=== PATIENT | male | born 1965 | race Two or more races ===

== ENCOUNTER 2019-08-27 17:04 | Inpatient (IN) | payer OTHER ==
[~2019-08-27] VITALS: Ht 170.2 cm; Wt 54.4 kg
[2019-08-27] MEDS ORDERED: ONDANSETRON HCL/PF - ER 4 MG/2 ML VIAL IV ONE (17:30)
[2019-08-27] MEDS ORDERED: IV NS 0.9% 1,000 ML BAG IV ONE (17:30)
[2019-08-27] MEDS ORDERED: MORPHINE SULFATE INJ 2 MG/ML DISP.SYRIN IV ONE ×2 (17:30→22:00)
--- NOTE | 2019-08-27 17:30 | NUR ---
BIB RA 878 from Home "Abdominal Pain/Nausea was seen in [facility] UTI leukocystosis given meds but NOT better. on room air, breathing evenly and unlabored. connected to the monitor and pulse ox. kept comfortable, will continue to monitor accordingly.
[2019-08-27] MEDS ORDERED: ONDANSETRON HCL/PF 4 MG/2 ML VIAL ONE (17:38)
[2019-08-27] MEDS ORDERED: MORPHINE SULFATE INJ 2 MG/ML DISP.SYRIN ONE ×2 (17:39→21:46)
[2019-08-27 17:41] LABS: BASOPHILS # (AUTO) 0.1 /CMM (0.0-0.2); BASOPHILS % (AUTO) 0.7 % (0.0-2.0); EOSINOPHILS % (AUTO) 2.3 % (0.0-6.0); HEMATOCRIT 43 % (39-51); HEMOGLOBIN 13.6 g/dL (13.5-17.5); LYMPHOCYTES # (AUTO) 2.3 /CMM (0.8-4.8); LYMPHOCYTES % (AUTO) 25.2 % (20.0-44.0); MEAN CORPUSCULAR HGB CONC 32 g/dl (31.0-36.0); MEAN CORPUSCULAR VOLUME 71 fL (80-96); MONOCYTES # (AUTO) 1.2 /CMM (0.1-1.30); MONOCYTES % (AUTO) 12.7 % (2.0-12.0); NEUTROPHILS # (AUTO) 5.4 /CMM (1.8-8.9); NEUTROPHILS % (AUTO) 59.1 % (43.0-81.0); PLATELET COUNT (AUTO) 321 /CMM (150-450); RED BLOOD CELL COUNT(AUTO) 6.03 MIL/uL (4.5-6.0); WHITE BLOOD COUNT (AUTO) 9.1 K/uL (4.3-11.0)
[2019-08-27 17:56] LABS: ALANINE AMINOTRANSFERASE 18 U/L (12-78); ALBUMIN 3.7 g/dL (3.4-5.0); ALKALINE PHOSPHATASE 70 U/L (46-116); ASPARTATE AMINOTRANSFERASE 21 U/L (15-37); BILIRUBIN,DIRECT 0.1 mg/dL (0.0-0.2); BILIRUBIN,TOTAL 0.6 mg/dL (0.2-1.0); CARBON DIOXIDE 29 mmol/L (21-32); CHLORIDE 96 mmol/L (98-107); CREATININE 1.6 mg/dL (0.6-1.3); GLUCOSE 132 mg/dL (74-106); POTASSIUM 3.8 mmol/L (3.5-5.1); SODIUM SERUM 135 mmol/L (136-145); TOTAL PROTEIN, SERUM 7.7 g/dL (6.4-8.2); UREA NITROGEN, BLOOD 27 mg/dL (7-18)
[2019-08-27 17:58] LABS: CALCIUM, SERUM 13.8 mg/dL (8.5-10.1)
--- NOTE | 2019-08-27 18:00 | NUR ---
wheeled patient to ct
--- NOTE | 2019-08-27 18:00 | NUR ---
med recon nurse: notes pt unable to remember his exact meds when asked, but he goes [facility] [employer] as stated. place a call to [facility] ([phone]), spoke to robbie (pharmacist) and provided his maintenance medications and verified meds over the phone.
[2019-08-27] MEDS ORDERED: METF500T PO (18:08)
[2019-08-27] MEDS ORDERED: LOSA100T31 PO (18:08)
[2019-08-27] MEDS ORDERED: GLIP5TAB26 PO (18:08)
[2019-08-27] MEDS ORDERED: ATOR10TA PO (18:08)
[2019-08-27] MEDS ORDERED: AMLO10TA7 PO (18:08)
--- NOTE | 2019-08-27 18:08 | NUR ---
patient came back from ct
[2019-08-27 18:12] LABS: BILIRUBIN,URINE Negative (NEGATIVE); BLOOD, URINE Negative Ery/uL (NEGATIVE); COLOR,URINE Yellow (YELLOW); KETONES,URINE 80 (NEGATIVE); LEUKOCYTE ESTERASE ,URINE Trace (NEGATIVE); NITRITE, URINE Positive (NEGATIVE); PH,URINE 6.5 (5.0-8.0); PROTEIN,URINE Negative (NEGATIVE); UGLUCOSE Negative (NEGATIVE); UROBILINOGEN,URINE 0.2 EU/dL (0.2)
--- NOTE | 2019-08-27 18:12 | NUR ---
wheeled patient via gurney to ct
[2019-08-27 18:13] LABS: APPEARANCE,URINE HAZY (CLEAR)
--- NOTE | 2019-08-27 18:13 | NUR ---
collected urine and sent to lab
[2019-08-27] MEDS ORDERED: MEROPENEM 1,000 MG in IV NS 0.9% 100 ML IV ONE (19:00)
[2019-08-27 19:04] LABS: BACTERIA,URINE Moderate /HPF (None Seen); RBC,URINE 0-2 /HPF (0-2); SQUAMOUS EPITHELIAL CELL,UR Many /HPF (None Seen)
--- NOTE | 2019-08-27 19:12 | NUR ---
report given to Pauline LEMON for [place]
--- NOTE | 2019-08-27 19:38 | NUR ---
GAVE MOVESHEET TO ADMITTING FOR INSURANCE AUTH
--- NOTE | 2019-08-27 21:05 | NUR ---
DR FALCON SPEAKING WITH DR HARDIN FROM [facility]
--- NOTE | 2019-08-27 21:13 | NUR ---
DR FALCON SPEAKING WITH DR WATT
--- NOTE | 2019-08-27 21:20 | NUR ---
RECEIVED AUTH TO ADMIT
--- NOTE | 2019-08-27 21:24 | NUR ---
PAGED JACINTO STINSON FOR ADMISSION
--- NOTE | 2019-08-27 21:30 | NUR ---
DR. FALCON AT THE BED SIDE. SPOKE TO THE PT REGARDING NG INSERTION. PT REFUSED NG AT THIS TIME . RISK VS. BENEFITS WERE EXPLAINED TO THE PT BY .
--- NOTE | 2019-08-27 22:24 | NUR ---
REPORT GIVEN TO NEEL
--- NOTE | 2019-08-27 22:45 | NUR ---
RN OPENING NOTE PATIENT ARRIVED TO UNIT AT THIS TIME FROM ER VIA [facility]. PATIENT TRANSFERRED SELF FROM [facility] TO HOSPITAL BED WITH MINIMAL ASSISTANCE. A&O X4. VERBALLY RESPONSIVE. SPEECH IS CLEAR AND COMPREHENSIVE. BREATHING IS EVEN AND NON LABORED. 99% ROOM AIR. AFEBRILE. IN NO APPARENT DISTRESS NOTED AT THIS TIME. PATIENT IS MOTIVATED TO SELF CARE. NOTED PINK/RED SCAB OF LEFT KNEE AND MULTIPLE ROUND SCABS ON RIGHT ARM. PATIENT HAS SUPRAPUBIC CATHETER AND DRAINING WELL. 100 CC NOTED URINE IN URINE COLLECTION BAG. HEALED SURGICAL INCISION NOTED BELOW SITE OF SUPRAPUBIC CATH. PER PATIENT, HE HAS NOT HAD A BOWEL MOVEMENT IN 10 DAYS. HE VERBALIZED THAT HE VOMITS AFTER ATTEMPTING TO EAT OR DRINK. PER MD, PATIENT IS NPO. BED IS LOWERED AND LOCKED FOR SAFETY. CALL LIGHT IS WITHIN EASY REACH. WILL CONTINUE TO MONITOR.
[2019-08-27 22:50] VITALS: BP 155/99
--- NOTE | 2019-08-27 22:52 | NUR ---
PT WAS TRANSFERRED TO 115 UNDER ACLS
[2019-08-27] MEDS ORDERED: Z GUARD REMEDY 2 OZ OINT TP PRN (23:00)
[2019-08-27] MEDS ORDERED: DEXTROSE 50%-WATER 50 ML DISP.SYRIN IV PRN (23:00)
[2019-08-27] MEDS: IV D5/ 0.9% NACL 1,000 ML IV PRN (23:43)
[2019-08-27] MEDS: BLOOD SUGAR DIAGNOSTIC 1 EACH STRIP IN SCH (23:52)
[2019-08-27] MEDS ORDERED: METRONIDAZOLE 500MG/ NS 100ML 100 ML IV ONE (23:59)
[2019-08-28] MEDS: METRONIDAZOLE 500MG/ NS 100ML 500 MG in PREMIX 1 EA IV SCH ×4 (00:02→20:51)
[2019-08-28] MEDS: MORPHINE SULFATE INJ 2 MG/ML DISP.SYRIN IV PRN ×5 (01:54→19:52)
[2019-08-28] MEDS: BLOOD SUGAR DIAGNOSTIC 1 EACH STRIP IN SCH ×3 (05:26→18:13)
[2019-08-28] MEDS: INSULIN REGULAR, HUMAN 100 UNIT/ML 3 ML VIAL SQ PRN ×2 (05:29→18:16)
[2019-08-28] MEDS ORDERED: METRONIDAZOLE 500MG/ NS 100ML 100 ML IV ONE (06:19)
[2019-08-28 06:23] LABS: BASOPHILS # (AUTO) 0.1 /CMM (0.0-0.2); BASOPHILS % (AUTO) 0.8 % (0.0-2.0); EOSINOPHILS % (AUTO) 3.2 % (0.0-6.0); HEMATOCRIT 40 % (39-51); HEMOGLOBIN 12.5 g/dL (13.5-17.5); LYMPHOCYTES # (AUTO) 1.5 /CMM (0.8-4.8); LYMPHOCYTES % (AUTO) 21.4 % (20.0-44.0); MEAN CORPUSCULAR HGB CONC 32 g/dl (31.0-36.0); MEAN CORPUSCULAR VOLUME 70 fL (80-96); MONOCYTES # (AUTO) 0.8 /CMM (0.1-1.30); MONOCYTES % (AUTO) 11.2 % (2.0-12.0); NEUTROPHILS # (AUTO) 4.4 /CMM (1.8-8.9); NEUTROPHILS % (AUTO) 63.4 % (43.0-81.0); PLATELET COUNT (AUTO) 332 /CMM (150-450); RED BLOOD CELL COUNT(AUTO) 5.67 MIL/uL (4.5-6.0); WHITE BLOOD COUNT (AUTO) 6.9 K/uL (4.3-11.0)
[2019-08-28 06:34] LABS: ALBUMIN 3.1 g/dL (3.4-5.0); BILIRUBIN,TOTAL 0.5 mg/dL (0.2-1.0); CALCIUM, SERUM 11.4 mg/dL (8.5-10.1); CREATININE 1.5 mg/dL (0.6-1.3); MAGNESIUM 1.8 mg/dL (1.8-2.4); PHOSPHORUS 2.4 mg/dL (2.5-4.9); POTASSIUM 3.6 mmol/L (3.5-5.1); TOTAL PROTEIN, SERUM 6.6 g/dL (6.4-8.2)
[2019-08-28 06:39] LABS: THYROID STIMULATING HORMONE 1.399 uIU/mL (0.358-3.74)
--- NOTE | 2019-08-28 07:49 | NUR ---
RN CLOSING NOTE PATIENT IS IN BED RESTING. A&O X4. BREATHING EVEN AND NON LABORED. NO SOB NOTED. ABLE TO MAKE NEEDS KNOWN. PRN PAIN MEDS GIVEN ORDERED AND TOLERATED WELL. PATIENT KEPT NPO. IN NO APPARENT DISTRESS NOTED AT THIS TIME. ENDORSED TO AM SHIFT RN FOR CONTINUATION OF CARE.
[2019-08-28 08:00] VITALS: BP_SYST 113; BP_SYST 140; BP_DIAS 57; BP_DIAS 79
[2019-08-28] MEDS ORDERED: MEROPENEM 1 G in IV NS 0.9% 100 ML IV ONE (09:00)
[2019-08-28] MEDS: PANTOPRAZOLE 40 MG VIAL IV SCH (09:23)
--- NOTE | 2019-08-28 09:31 | NUR ---
RN OPENING NOTES RECEIVED PATIENT IN BED, A/O X 4. VERBALLY RESPONSIVE AND ABLE TO MAKE NEEDS KNOWN. COMPLAINT OF PAIN ON HIS LOWER BACK, INFORMED PATIENT THAT I WILL CHECK HIS FILE IF THERE'S ANY ORDER OF PAIN MEDS. ON ROOM AIR, SATURATING WELL. IV ACCESS ON L HAND #20, INTACT, PATENT AND FLUSHED WELL. NO SIGNS OF INFILTRATION NOTED. WITH D5NS @75ML RUNNING. HOLLAND CATHETER DRAINING OF YELLOW COLOR URINE VIA GRAVITY WITH 100ML ON THE BAG. SAFETY MEASURES IN PLACE, CALL LIGHT WITHIN REACH. WILL GIVE PRN PAIN MEDS SOON AND CONTINUE TO MONITOR.
[2019-08-28] MEDS ORDERED: K PHOS NEUTRAL 250 MG TABLET PO ONE (12:30)
--- NOTE | 2019-08-28 12:35 | NUR ---
RN NOTES CALLED LAB AND SPOKE WITH CARLA THAT URINE SPECIMEN IS READY FOR CLIMATOLOGIST.
[2019-08-28] MEDS ORDERED: POTASSIUM PHOSPHATE MM 7.5 MMOL in IV D5W 100 ML IV SCH (14:00)
[2019-08-28 14:33] LABS: APPEARANCE,URINE CLEAR (CLEAR); BILIRUBIN,URINE NEGATIVE (NEGATIVE); BLOOD, URINE NEGATIVE Ery/uL (NEGATIVE); COLOR,URINE YELLOW (YELLOW); KETONES,URINE TRACE (NEGATIVE); NITRITE, URINE POSITIVE (NEGATIVE); PROTEIN,URINE NEGATIVE (NEGATIVE); UGLUCOSE NEGATIVE (NEGATIVE); UROBILINOGEN,URINE 0.2 EU/dL (0.2)
[2019-08-28 14:45] LABS: BACTERIA,URINE 1+ /HPF (None Seen); LEUKOCYTE ESTERASE ,URINE TRACE (NEGATIVE); RBC,URINE 0-2 /HPF (0-2)
[2019-08-28 14:46] LABS: SQUAMOUS EPITHELIAL CELL,UR Few /HPF (None Seen)
[2019-08-28 14:57] LABS: CREATININE, URINE 80.6 MG/DL (30.0-125.0); URINE TOTAL PROTEIN 11.6 mg/dL (0-11.9)
--- NOTE | 2019-08-28 15:00 | NUR ---
RN NOTES CONSUMER SERVICES ADVISOR BY RADIOLOGY FOR SMALL BOWEL FOLLOW THROUGH, VITALS SIGNS WNL, IN STABLE CONDITION.
[2019-08-28] MEDS ORDERED: DIATR MEGLU/DIATRIZOATE SODIUM 120 ML BOTTLE (GASTROGRAPHIN) ONE (15:13)
--- NOTE | 2019-08-28 15:30 | NUR ---
RN NOTES WASN'T ABLE TO REASSESS ON MORPHINE BECAUSE PATIENT IS CURRENTLY AT RADIOLOGY
[2019-08-28 16:00] VITALS: BP 138/83
[2019-08-28 16:03] LABS: EOSINOPHIL,URINE None Seen
[2019-08-28] MEDS: MEROPENEM 1 G in IV NS 0.9% 100 ML IV SCH (17:19)
--- NOTE | 2019-08-28 17:25 | NUR ---
RN NOTES PATIENT CAME BACK AFTER SMALL BOWEL FOLLOW THROUGH
--- NOTE | 2019-08-28 19:45 | NUR ---
RN NOTES PATIENT IN BED, ASLEEP. IN NO APPARENT DISTRESS NOTED. NO CHANGE OF CONDITION DURING AM SHIFT. ENDORSED TO PM RN FOR KAREN
--- NOTE | 2019-08-28 19:52 | NUR ---
RN NOTES PRN MORPHINE 2MGMG IV GIVEN ORDERED, PATIENT IS C/O MID ABD PAIN 8/10. WILL MONITOR FOR EFFECTIVENESS.
--- NOTE | 2019-08-28 19:52 | NUR ---
RN NOTES RECEIVED PATIENT ALERT AWAKE ORIENTED X4. BREATHING NORMAL NO SOB NOTED. LT HAND IV #20 INTACT FLESHED WELL. PATIENT IS AMBULATORY. SUPRAPUBIC CATH DARNING WELL. PATIENT IS C/O MID UPPER ABD PAIN 9/10. MORPHINE 2MG IV GIVEN ORDERED. WILL CONT TO MONITOR AND REASSESS THE PATIENT FOR EFFECTIVENESS. SAFETY MEASURES IN PLACE. CALL LIGHT WITHIN REACH. BED IN LOW AND LOCKED POSITION. WILL CONT WITH PLAN OF CARE.
--- NOTE | 2019-08-28 20:22 | NUR ---
RN NOTES PRN MORPHINE WAS EFFECTIVE PATIENT REPORTED PAIN LOWER TO 4/10, SAFETY MEASURES IN PLACE. BED IN LOW AND LOCKED POSITION. CALL LIGHT WITHIN REACH.
[2019-08-28] MEDS: ONDANSETRON HCL/PF 4 MG/2 ML VIAL IVP PRN (20:54)
--- NOTE | 2019-08-28 20:54 | NUR ---
RN NOTES PRN ZOFRAN GIVEN ORDERED PATIENT HAD X1 EPISODE OF VOMITING AND C/O OF NAUSEA. WILL CONT TO MONITOR AND REASSESS THE PATIENT FOR EFFECTIVENESS.
--- NOTE | 2019-08-28 21:24 | NUR ---
RN NOTES ZOFRAN WAS EFFECTIVE. NAUSEA IMPROVED AND NO EPISODE OF VOMITING REPORTED BY THE PATIENT.
[2019-08-28] MEDS: IV D5/ 0.9% NACL 1,000 ML IV PRN (22:34)
[2019-08-28] MEDS: ACETAMINOPHEN 325 MG TABLET PO PRN (23:15)
--- NOTE | 2019-08-28 23:15 | NUR ---
RN NOTES PATIENT'S C/O OF MID ABD PAIN 3/10 PRN TYLENOL ADMINISTERED ORDERED. WILL REASSESS FOR EFFECTIVENESS.
[2019-08-29] VITALS: BP 141/87
[2019-08-29] MEDS: BLOOD SUGAR DIAGNOSTIC 1 EACH STRIP IN SCH ×3 (00:10→12:24)
[2019-08-29] MEDS: MEROPENEM 1 G in IV NS 0.9% 100 ML IV SCH ×2 (00:10→09:04)
[2019-08-29] MEDS: MORPHINE SULFATE INJ 2 MG/ML DISP.SYRIN IV PRN ×3 (00:11→09:05)
--- NOTE | 2019-08-29 00:11 | NUR ---
RN NOTES PRN MORPHINE 2MG IV GIVEN ORDERED, PATIENT IS C/O MID ABD PAIN 9/10. WILL MONITOR FOR EFFECTIVENESS.
--- NOTE | 2019-08-29 00:15 | NUR ---
RN NOTES TYLENOL WAS EFFECTIVE PAIN LOWER TO 2/10. SAFETY MEASURES IN PLACE. CALL LIGHT WITHIN REACH.
[2019-08-29] MEDS: INSULIN REGULAR, HUMAN 100 UNIT/ML 3 ML VIAL SQ PRN ×2 (00:34→12:23)
--- NOTE | 2019-08-29 00:41 | NUR ---
RN NOTES PRN MORPHINE WAS EFFECTIVE PATIENT REPORTED PAIN LOWER TO 5/10, PATIENT RESTING IN BED. SAFETY MEASURES IN PLACE. BED IN LOW AND LOCKED POSITION. CALL LIGHT WITHIN REACH.
[2019-08-29] MEDS: ONDANSETRON HCL/PF 4 MG/2 ML VIAL IVP PRN (03:20)
[2019-08-29] MEDS: METRONIDAZOLE 500MG/ NS 100ML 500 MG in PREMIX 1 EA IV SCH ×2 (04:11→12:24)
--- NOTE | 2019-08-29 04:27 | NUR ---
RN NOTES PRN MORPHINE 2MG IV GIVEN ORDERED, PATIENT IS C/O MID ABD PAIN 9/10. WILL MONITOR FOR EFFECTIVENESS.
[2019-08-29 07:02] LABS: BASOPHILS % (AUTO) 0.1 % (0.0-2.0); EOSINOPHILS % (AUTO) 0.4 % (0.0-6.0); HEMATOCRIT 37 % (39-51); HEMOGLOBIN 11.7 g/dL (13.5-17.5); LYMPHOCYTES # (AUTO) 0.8 /CMM (0.8-4.8); LYMPHOCYTES % (AUTO) 5.5 % (20.0-44.0); MEAN CORPUSCULAR HGB CONC 31 g/dl (31.0-36.0); MEAN CORPUSCULAR VOLUME 70 fL (80-96); MONOCYTES # (AUTO) 0.8 /CMM (0.1-1.30); MONOCYTES % (AUTO) 4.9 % (2.0-12.0); NEUTROPHILS # (AUTO) 13.7 /CMM (1.8-8.9); NEUTROPHILS % (AUTO) 89.1 % (43.0-81.0); PLATELET COUNT (AUTO) 315 /CMM (150-450); RED BLOOD CELL COUNT(AUTO) 5.37 MIL/uL (4.5-6.0); WHITE BLOOD COUNT (AUTO) 15.4 K/uL (4.3-11.0)
--- NOTE | 2019-08-29 07:12 | NUR ---
RN NOTES PATIENT IN BED AOX4, SKIN WARM AND DRY TO TOUCH. PATIENT RECEIVED PRN PAIN/ ROUTINE MEDICATION FOR MID ABD PAIN TOLERATED WELL. BREATHING NORMAL NO SOB NOTED, RESPIRATION EVEN UNLABORED. VS WITHIN NORMAL. PATIENT TURNED AND REPOSITION Q2H. ALL SAFETY MEASURES IN PLACE, CALL LIGHT WITHIN REACH, BED IN LOW/LOCKED POSITION, ENDORSED THE PATIENT TO AM NURSE.
[2019-08-29 07:24] LABS: BILIRUBIN,TOTAL 0.4 mg/dL (0.2-1.0); CALCIUM, SERUM 10.5 mg/dL (8.5-10.1); CREATININE 1.5 mg/dL (0.6-1.3); MAGNESIUM 1.9 mg/dL (1.8-2.4); PHOSPHORUS 2.3 mg/dL (2.5-4.9); POTASSIUM 3.4 mmol/L (3.5-5.1); TOTAL PROTEIN, SERUM 6.4 g/dL (6.4-8.2)
--- NOTE | 2019-08-29 07:40 | NUR ---
RN NOTES RECEIVED PHONE CALL FROM JACINTO HORNE NEW ORDER FOR STAT KUB FOR INDICATION FOR FOLLOW UP SMALL BOWEL OBSTRUCTION. ORDER NOTED AND CARRIED OUT. PATIENT AWARE.
[2019-08-29 08:00] VITALS: BP 125/77
[2019-08-29] MEDS: PANTOPRAZOLE 40 MG VIAL IV SCH (09:04)
[2019-08-29] MEDS ORDERED: HYDROCODONE/APAP 5/325MG 1 EACH TABLET PO PRN (11:30)
[2019-08-29] MEDS ORDERED: K PHOS NEUTRAL 250 MG TABLET PO ONE (12:30)
[2019-08-29] MEDS ORDERED: POTASSIUM CHLORIDE 20 MEQ TAB.PRT.SR PO ONE (12:30)
--- NOTE | 2019-08-29 14:15 | NUR ---
SBAR report given to ION Thomas for continuity of pt care.
[2019-08-29] MEDS ORDERED: SENN-261 PO (14:35)
[2019-08-29] MEDS ORDERED: DOCU-141 PO (14:35)
[2019-08-29] MEDS: ACETAMINOPHEN 325 MG TABLET PO PRN (15:11)
[2019-08-29 16:00] VITALS: BP 125/77
--- NOTE | 2019-08-29 16:00 | NUR ---
Given discharge instruction include car pick up driver medications, side effect, follow up PCP, and patient verbally understanding. Denied pain or discomfort, in stable condition.
[2019-08-30 08:06] LABS: *SPE ALBUMIN 2.9 g/dL (2.9-4.4); *SPE ALPHA-1-GLOBULIN 0.3 g/dL (0.0-0.4); *SPE ALPHA-2-GLOBULIN 1.1 g/dL (0.4-1.0); *SPE BETA GLOBULIN 0.8 g/dL (0.7-1.3); *SPE GLOBULIN, TOTAL 2.9 g/dL (2.2-3.9); *SPE M-SPIKE Not Observed g/dL (Not Observed); *SPEGAMMA GLOBULIN 0.8 g/dL (0.4-1.8)
== END 2019-08-29 16:45 | disposition home or self-care (01) | DRG 388 ==
LOC: ER 17:06 → TELE1 22:08 → MEDSG1 08-28 10:32
PROVIDERS: ADMIT Hospitalist
DX: K56.600 Partial intestinal obstruction, unspecified as to cause (principal); N17.0 Acute kidney failure with tubular necrosis; N39.0 Urinary tract infection, site not specified; I31.3 Pericardial effusion (noninflammatory); E83.52 Hypercalcemia; E11.9 Type 2 diabetes mellitus without complications; I10 Essential (primary) hypertension; Z79.84 Long term (current) use of oral hypoglycemic drugs; Z87.440 Personal history of urinary (tract) infections; Z87.442 Personal history of urinary calculi; K56.7 Ileus, unspecified; K76.89 Other specified diseases of liver; E86.1 Hypovolemia; N21.0 Calculus in bladder; K80.20 Calculus of gallbladder without cholecystitis without obstruction; K44.9 Diaphragmatic hernia without obstruction or gangrene
CPT/HCPCS: 36415; 71045-TC; 74018; 74250-TC; 80048-TC; 80053-TC; 80061-TC; 80076-TC; 80305; 81000-TC; 82550-TC; 82570-TC; 82962-TC; 83605-TC; 83735-TC; 83970; 84100-TC; 84155; 84155-TC; 84165; 84300-TC; 84443-TC; 84484-TC; 85025-TC; 85730-TC; 87040-TC; 87081-TC; 87086-TC; 87186-TC; A4216; A6403; C9113; G0378; G0480; J1815; J2185; J2270; J2405; J3490; J7030; J7042; J7060; Q9963

== ENCOUNTER 2022-01-11 19:19 | Emergency (ER) | payer OTHER ==
[~2022-01-11] VITALS: Ht 170.2 cm; Wt 64.9 kg
[~2022-01-11 19:19] MED LIST: AMLO-213 PO; ATOR10TA PO; DOCU-141 PO; GLIP5TAB26 PO; LOSA100T31 PO; METF500T PO; SENN-261 PO
--- NOTE | 2022-01-11 19:33 | NUR ---
[id number] FROM HOME C/O N/V X 2 DAYS GIVEN ZOFRAN PO PHOTORESIST CONTACT PRINTER . PT A/OX4. TOLERATING R/A WELL WITH NO SOB, RESP EVEN AND NON LABORED. CONNECTED PT TO POX AND MONITOR. SAFETY MEASURES IN PLACE
--- NOTE | 2022-01-11 19:50 | NUR ---
DR. MANISHA RODAS AT PT'S BEDSIDE
[2022-01-11] MEDS ORDERED: MORPHINE SULFATE INJ 2 MG/ML DISP.SYRIN IV ONE (20:00)
[2022-01-11] MEDS ORDERED: IV NS 0.9% 500 ML BAG IV ONE (20:00)
[2022-01-11] MEDS ORDERED: ONDANSETRON HCL/PF 4 MG/2 ML VIAL IVP ONE (20:00)
[2022-01-11] MEDS ORDERED: PANTOPRAZOLE 40 MG VIAL IV ONE (20:00)
[2022-01-11] MEDS ORDERED: ONDANSETRON HCL/PF 4 MG/2 ML VIAL ONE (20:01)
[2022-01-11] MEDS ORDERED: MORPHINE SULFATE INJ 4 MG/ML DISP.SYRIN ONE (20:01)
[2022-01-11] MEDS ORDERED: PANTOPRAZOLE 40 MG VIAL ONE (20:01)
--- NOTE | 2022-01-11 20:07 | NUR ---
SALE PROFESSIONAL DIGITAL MARKETING AT PT'S BEDSIDE
--- NOTE | 2022-01-11 20:21 | NUR ---
PT TAKEN TO CT VIA [facility]
--- NOTE | 2022-01-11 20:23 | NUR ---
PT RETURNED FROM CT
--- NOTE | 2022-01-11 20:50 | NUR ---
R WRIST #20G S/L. URINE COLLECTED FROM SUPRAPUBIC F/C
--- NOTE | 2022-01-11 20:54 | NUR ---
PT TAKEN TO CT VIA [facility]
--- NOTE | 2022-01-11 20:55 | NUR ---
UPDATED ARLYN SISTER [phone]
[2022-01-11 21:07] LABS: BASOPHILS # (AUTO) 0.1 K/uL (0.0-0.2); BASOPHILS % (AUTO) 0.8 % (0.0-2.0); EOSINOPHILS % (AUTO) 0.5 % (0.0-6.0); HEMATOCRIT 43 % (39-51); HEMOGLOBIN 13.5 g/dL (13.5-17.5); LYMPHOCYTES # (AUTO) 1.3 K/uL (0.8-4.8); LYMPHOCYTES % (AUTO) 15.1 % (20.0-44.0); MEAN CORPUSCULAR HGB CONC 32 g/dl (31.0-36.0); MEAN CORPUSCULAR VOLUME 72 fL (80-96); MONOCYTES # (AUTO) 0.5 K/uL (0.1-1.30); MONOCYTES % (AUTO) 5.8 % (2.0-12.0); NEUTROPHILS # (AUTO) 6.7 K/uL (1.8-8.9); NEUTROPHILS % (AUTO) 77.8 % (43.0-81.0); PLATELET COUNT (AUTO) 221 K/uL (150-450); RED BLOOD CELL COUNT(AUTO) 5.94 MIL/uL (4.5-6.0); WHITE BLOOD COUNT (AUTO) 8.6 K/uL (4.3-11.0)
[2022-01-11 21:15] LABS: CALCIUM, SERUM 11.5 mg/dL (8.5-10.1); CARBON DIOXIDE 22 mmol/L (21-32); CHLORIDE 100 mmol/L (98-107); CREATININE 2.3 mg/dL (0.6-1.3); GLUCOSE 176 mg/dL (74-106); POTASSIUM 3.5 mmol/L (3.5-5.1); SODIUM SERUM 138 mmol/L (136-145); UREA NITROGEN, BLOOD 22 mg/dL (7-18)
[2022-01-11 21:17] LABS: BILIRUBIN,URINE NEGATIVE (NEGATIVE); COLOR,URINE YELLOW (YELLOW); LEUKOCYTE ESTERASE ,URINE SMALL (NEGATIVE); NITRITE, URINE POSITIVE (NEGATIVE); PROTEIN,URINE NEGATIVE (NEGATIVE); UGLUCOSE NEGATIVE (NEGATIVE); UROBILINOGEN,URINE 0.2 EU/dL (0.2)
[2022-01-11 21:21] LABS: ALANINE AMINOTRANSFERASE 27 U/L (12-78); ALBUMIN 4.5 g/dL (3.4-5.0); ALKALINE PHOSPHATASE 66 U/L (46-116); ASPARTATE AMINOTRANSFERASE 15 U/L (15-37); BILIRUBIN,DIRECT 0.2 mg/dL (0.0-0.2); BILIRUBIN,TOTAL 0.7 mg/dL (0.2-1.0); LIPASE 45 U/L (73-393)
[2022-01-11] MEDS ORDERED: CEFTRIAXONE 1GM BAG (ER ONLY) 1 GM/50 ML PIGGYBACK IV ONE (21:30)
[2022-01-11] MEDS ORDERED: HYDROMORPHONE 1 MG/1 ML DISP.SYRIN IV ONE (21:30)
[2022-01-11] MEDS ORDERED: CEFTRIAXONE 1GM BAG (ER ONLY) 50 ML IV ONE (21:31)
[2022-01-11] MEDS ORDERED: HYDROMORPHONE 1 MG/1 ML DISP.SYRIN ONE (21:31)
[2022-01-11 21:34] LABS: BACTERIA,URINE Many /HPF (None Seen); RBC,URINE 0-2 /HPF (0-2)
[2022-01-11 21:35] LABS: SQUAMOUS EPITHELIAL CELL,UR Many /HPF (None Seen)
--- NOTE | 2022-01-11 21:38 | NUR ---
COVID SWAB DONE AND SENT TO LAB
--- NOTE | 2022-01-11 21:38 | NUR ---
HOURLY TEAM MEMBERS AT PT'S BEDSIDE
--- NOTE | 2022-01-11 22:13 | NUR ---
BI SPECIALIST AT PT'S BEDSIDE
[2022-01-12] MEDS ORDERED: ONDANSETRON HCL/PF 4 MG/2 ML VIAL ONE ×2 (00:54→01:12)
[2022-01-12] MEDS ORDERED: HYDROMORPHONE 1 MG/1 ML DISP.SYRIN ONE (00:54)
[2022-01-12] MEDS ORDERED: ONDANSETRON HCL/PF 4 MG/2 ML VIAL IV ONE ×2 (01:00→01:30)
[2022-01-12] MEDS ORDERED: HYDROMORPHONE 1 MG/1 ML DISP.SYRIN IV ONE ×2 (01:00→05:30)
--- NOTE | 2022-01-12 02:54 | NUR ---
MARTIN ANDRADE STATED PT FIDENCIO TRANSFER TO [facility]. WILL CALL BACK FOR ROOM & CALL FOR REPORT INFO
[2022-01-12 04:28] VITALS: BP 113/53
--- NOTE | 2022-01-12 04:40 | NUR ---
MARTIN ANDRADE COMMISSARY PRODUCTION SUPERVISOR [phone] ACCEPTING INFO FOR PT TO BE ADMITTED TO [facility]. TO [id number] CALL FOR REPORT [phone] DAGMAR RAMÍREZ WILL CODING SUPPORT SPECIALIST PT ETA [phone]
--- NOTE | 2022-01-12 05:11 | NUR ---
REPORT GIVEN TO ALEX LEMON FROM [facility] TELE UNIT FOR KAREN
--- NOTE | 2022-01-12 05:16 | NUR ---
UPDATED ARLYN SISTER [phone] REGARDING PT TRANSFER TO [facility]
--- NOTE | 2022-01-12 05:40 | NUR ---
ADMINISTERED DILAUDID 0.5MG IVP FOR 8/10 RLQ PAIN ORDERED. USED DILAUDID PULLED FROM 0100; NO WASTE NEEDED. WITNESSED WITH 2 RNS. PHARMACY AWARE
--- NOTE | 2022-01-12 06:57 | NUR ---
REPORT GIVEN TO ERICA FOR PT TO TRANSFER TO [facility]. VSS. ALL BELONGINGS WITH PT.
== END 2022-01-12 07:19 | disposition short-term general hospital (02) ==
LOC: ER 19:21
DX: R07.9 Chest pain, unspecified (principal); N39.0 Urinary tract infection, site not specified; N17.9 Acute kidney failure, unspecified; N20.0 Calculus of kidney; I45.10 Unspecified right bundle-branch block; E11.65 Type 2 diabetes mellitus with hyperglycemia; Z79.84 Long term (current) use of oral hypoglycemic drugs; I10 Essential (primary) hypertension; Z79.899 Other long term (current) drug therapy; Z20.822 Contact with and (suspected) exposure to COVID-19
CPT/HCPCS: 99285; 74176; 96365; 96375; 71045; 87426; 93005; 85025; 80048; 87086; 83690; 80076; 81001; 36415; 84484 ×2; 85730; 82962; 96376; J2270; J2405 ×3; C9113; J0696; J1170 ×2; C9803

== ENCOUNTER 2024-03-06 17:25 | Inpatient (IN) | payer OTHER ==
[~2024-03-06] VITALS: Ht 172.7 cm; Wt 69.5 kg
[2024-03-06] MEDS: ONDANSETRON HCL/PF 4 MG/2 ML VIAL IVP ONE (18:00)
[2024-03-06] MEDS: FAMOTIDINE/PF INJ 20 MG/2 ML VIAL IV ONE (18:02)
[2024-03-06] MEDS: MORPHINE SULFATE INJ 2 MG/ML DISP.SYRIN IV ONE ×2 (18:04→19:47)
[2024-03-06] MEDS: IV NS 0.9% 1,000 ML BAG IV ONE (18:05)
[2024-03-06] MEDS ORDERED: FAMOTIDINE/PF INJ 20 MG/2 ML VIAL IV ONE (18:11)
[2024-03-06] MEDS ORDERED: ONDANSETRON HCL/PF 4 MG/2 ML VIAL ONE ×2 (18:11→19:44)
[2024-03-06] MEDS ORDERED: MORPHINE SULFATE INJ 2 MG/ML DISP.SYRIN ONE (18:11)
[2024-03-06 19:16] LABS: BASOPHILS # (AUTO) 0.1 K/uL (0.0-0.2); BASOPHILS % (AUTO) 0.5 % (0.0-2.0); HEMATOCRIT 51 % (39-51); HEMOGLOBIN 15.8 g/dL (13.5-17.5); LYMPHOCYTES # (AUTO) 0.9 K/uL (0.8-4.8); LYMPHOCYTES % (AUTO) 7.6 % (20.0-44.0); MEAN CORPUSCULAR HEMOGLOBIN 23 PG (26.0-33.0); MEAN CORPUSCULAR HGB CONC 31 g/dl (31.0-36.0); MEAN CORPUSCULAR VOLUME 72 fL (80-96); MONOCYTES # (AUTO) 0.3 K/uL (0.1-1.30); MONOCYTES % (AUTO) 2.6 % (2.0-12.0); NEUTROPHILS # (AUTO) 10.4 K/uL (1.8-8.9); NEUTROPHILS % (AUTO) 89.3 % (43.0-81.0); PLATELET COUNT (AUTO) 226 K/uL (150-450); RED CELL DISTRIBUTION WIDTH 15.9 % (11.5-15.0); WHITE BLOOD COUNT (AUTO) 11.7 K/uL (4.3-11.0)
[2024-03-06 19:25] LABS: CALCIUM, SERUM 11.1 mg/dL (8.5-10.1); CARBON DIOXIDE 20 mmol/L (21-32); CHLORIDE 100 mmol/L (98-107); CREATININE 2.1 mg/dL (0.6-1.3); GLUCOSE 218 mg/dL (74-106); POTASSIUM 3.5 mmol/L (3.5-5.1); SODIUM SERUM 138 mmol/L (136-145); UREA NITROGEN, BLOOD 22 mg/dL (7-18)
[2024-03-06 19:30] LABS: ALANINE AMINOTRANSFERASE 26 U/L (12-78); ALBUMIN 4.4 g/dL (3.4-5.0); ALKALINE PHOSPHATASE 77 U/L (46-116); ASPARTATE AMINOTRANSFERASE 22 U/L (15-37); BILIRUBIN,DIRECT 0.1 mg/dL (0.0-0.2); BILIRUBIN,TOTAL 0.7 mg/dL (0.2-1.0); LIPASE 16 U/L (16-77); TOTAL PROTEIN, SERUM 7.9 g/dL (6.4-8.2)
[2024-03-06] MEDS ORDERED: MORPHINE SULFATE INJ 4 MG/ML DISP.SYRIN ONE (19:40)
[2024-03-06] MEDS: ONDANSETRON HCL/PF - ER 4 MG/2 ML VIAL IV ONE (19:48)
[2024-03-06] MEDS ORDERED: Z GUARD REMEDY 4 OZ OINT TP PRN (22:00)
[2024-03-06] MEDS ORDERED: MAGNESIUM HYDROXIDE 30 ML UDC PO PRN (22:00)
[2024-03-06] MEDS ORDERED: DEXTROSE 50%-WATER 50 ML DISP.SYRIN IV PRN (22:00)
[2024-03-06] MEDS: SENNOSIDES 8.6 MG TABLET PO SCH (22:00)
[2024-03-06 22:32] VITALS: BP 134/85; TEMP 98.1; O2SAT 98
[2024-03-06 22:45] VITALS: BP 134/85; TEMP 98.9; O2SAT 98
[2024-03-06 23:14] LABS: ADD URINE CULTURE YES; APPEARANCE,URINE SLIGHTLY CLOUDY (CLEAR); BACTERIA,URINE Moderate /HPF (None Seen); BILIRUBIN,URINE 1+ (NEGATIVE); BLOOD, URINE TRACE-INTA Ery/uL (NEGATIVE); COLOR,URINE YELLOW (YELLOW); KETONES,URINE 2+ mg/dL (NEGATIVE); LEUKOCYTE ESTERASE ,URINE 1+ (NEGATIVE); NITRITE, URINE POSITIVE (NEGATIVE); PROTEIN,URINE TRACE mg/dl (NEGATIVE); SQUAMOUS EPITHELIAL CELL,UR Few /HPF (None Seen); UGLUCOSE NEGATIVE (NEGATIVE); UROBILINOGEN,URINE 0.2 EU/dL (0.2)
[2024-03-06] MEDS ORDERED: CEFTRIAXONE 1GM BAG (ER ONLY) 50 ML IV ONE (23:58)
[2024-03-07] VITALS: BP 125/84; TEMP 97.6; O2SAT 99
[2024-03-07] MEDS: CEFTRIAXONE 1 G in IV D5W 50 ML IV SCH (00:39)
[2024-03-07] MEDS: MORPHINE SULFATE INJ 4 MG/ML DISP.SYRIN IV PRN (00:41)
[2024-03-07] MEDS: HEPARIN SODIUM, PORCINE 5000 UNITS/1 ML VIAL SQ SCH (00:43)
[2024-03-07] MEDS: MAG HYDROX/AL HYDROX/SIMETH 30 ML UDC PO PRN (01:01)
[2024-03-07] MEDS: BLOOD SUGAR DIAGNOSTIC 1 EACH STRIP IN SCH (01:10)
[2024-03-07] MEDS: TEMAZEPAM 7.5 MG CAPSULE PO PRN (01:14)
[2024-03-07 06:36] LABS: BASOPHILS % (AUTO) 0.2 % (0.0-2.0); HEMATOCRIT 44 % (39-51); HEMOGLOBIN 13.8 g/dL (13.5-17.5); LYMPHOCYTES # (AUTO) 1.4 K/uL (0.8-4.8); LYMPHOCYTES % (AUTO) 15.6 % (20.0-44.0); MEAN CORPUSCULAR HEMOGLOBIN 22 PG (26.0-33.0); MEAN CORPUSCULAR HGB CONC 32 g/dl (31.0-36.0); MEAN CORPUSCULAR VOLUME 69 fL (80-96); MONOCYTES # (AUTO) 0.8 K/uL (0.1-1.30); MONOCYTES % (AUTO) 8.5 % (2.0-12.0); NEUTROPHILS # (AUTO) 6.8 K/uL (1.8-8.9); NEUTROPHILS % (AUTO) 75.7 % (43.0-81.0); PLATELET COUNT (AUTO) 237 K/uL (150-450); RED BLOOD CELL COUNT(AUTO) 6.29 MIL/uL (4.5-6.0); RED CELL DISTRIBUTION WIDTH 15.6 % (11.5-15.0)
[2024-03-07 06:43] LABS: CREATININE 2.3 mg/dL (0.6-1.3); MAGNESIUM 1.9 mg/dL (1.8-2.4); PHOSPHORUS 4.6 mg/dL (2.5-4.9); POTASSIUM 3.8 mmol/L (3.5-5.1)
[2024-03-07 07:44] LABS: THYROID STIMULATING HORMONE 0.77 uIU/mL (0.358-3.74)
[2024-03-07 08:00] VITALS: BP 142/95; TEMP 97.9; O2SAT 97
[2024-03-07] MEDS ORDERED: LOSA1TAB36 PO (08:24)
[2024-03-07] MEDS ORDERED: TRAZ-182 PO (08:24)
[2024-03-07] MEDS ORDERED: TAMS-12 PO (08:24)
[2024-03-07] MEDS ORDERED: TRAM50TA2 PO (08:24)
[2024-03-07] MEDS ORDERED: PANT40TA49 PO (08:24)
[2024-03-07] MEDS ORDERED: HYDR-4077 PO (08:24)
[2024-03-07] MEDS: PANTOPRAZOLE 40 MG VIAL IV SCH (08:43)
[2024-03-07] MEDS: AMLODIPINE BESYLATE 10 MG TABLET PO SCH (08:43)
[2024-03-07] MEDS: DOCUSATE SODIUM 100 MG CAPSULE PO SCH (08:43)
[2024-03-07] MEDS: ASPIRIN 81 MG TAB.CHEW PO SCH (09:20)
[2024-03-07] MEDS: ONDANSETRON HCL/PF 4 MG/2 ML VIAL IVP PRN (09:21)
[2024-03-07] MEDS: IV NS 0.9% 1,000 ML IV PRN (11:28)
[2024-03-07] MEDS: METOPROLOL TARTRATE 50 MG TABLET PO SCH (12:11)
[2024-03-07 16:00] VITALS: BP 120/90; TEMP 98.2; O2SAT 98
[2024-03-07] MEDS: ACETAMINOPHEN 325 MG TABLET PO PRN (16:37)
[2024-03-07 20:18] VITALS: BP 140/85; TEMP 97.2; O2SAT 97
[2024-03-07] MEDS: INSULIN REGULAR, HUMAN 100 UNIT/ML 3 ML VIAL SQ PRN (23:38)
[2024-03-08 06:38] LABS: BASOPHILS % (AUTO) 0.6 % (0.0-2.0); EOSINOPHILS # (AUTO) 0.1 K/uL (0.0-0.7); EOSINOPHILS % (AUTO) 0.7 % (0.0-6.0); HEMATOCRIT 39 % (39-51); HEMOGLOBIN 12.4 g/dL (13.5-17.5); LYMPHOCYTES # (AUTO) 2.6 K/uL (0.8-4.8); LYMPHOCYTES % (AUTO) 31.7 % (20.0-44.0); MEAN CORPUSCULAR HEMOGLOBIN 22 PG (26.0-33.0); MEAN CORPUSCULAR HGB CONC 32 g/dl (31.0-36.0); MEAN CORPUSCULAR VOLUME 69 fL (80-96); MONOCYTES # (AUTO) 0.7 K/uL (0.1-1.30); MONOCYTES % (AUTO) 8.1 % (2.0-12.0); NEUTROPHILS # (AUTO) 4.8 K/uL (1.8-8.9); NEUTROPHILS % (AUTO) 58.9 % (43.0-81.0); PLATELET COUNT (AUTO) 213 K/uL (150-450); RED BLOOD CELL COUNT(AUTO) 5.69 MIL/uL (4.5-6.0); RED CELL DISTRIBUTION WIDTH 15.6 % (11.5-15.0); WHITE BLOOD COUNT (AUTO) 8.2 K/uL (4.3-11.0)
[2024-03-08 06:49] LABS: ALBUMIN 3.3 g/dL (3.4-5.0); BILIRUBIN,TOTAL 0.6 mg/dL (0.2-1.0); CALCIUM, SERUM 8.9 mg/dL (8.5-10.1); CREATININE 1.8 mg/dL (0.6-1.3); MAGNESIUM 1.9 mg/dL (1.8-2.4); PHOSPHORUS 2.7 mg/dL (2.5-4.9); POTASSIUM 3.3 mmol/L (3.5-5.1); TOTAL PROTEIN, SERUM 6.2 g/dL (6.4-8.2)
[2024-03-08 08:04] VITALS: BP 131/86; TEMP 98.2; O2SAT 98
[2024-03-08] MEDS: PANTOPRAZOLE 40 MG TABLET.DR PO SCH (08:35)
[2024-03-08] MEDS: ATORVASTATIN 10 MG TABLET PO SCH (08:35)
[2024-03-08] MEDS: POTASSIUM CHLORIDE 10 MEQ TABLET.SA PO ONE (11:28)
[2024-03-08 13:21] VITALS: BP 117/78; TEMP 98.3; O2SAT 99
[2024-03-08] MEDS ORDERED: GLIPIZIDE XL 5 MG TAB.OSM.24 PO SCH (13:30)
[2024-03-08] MEDS ORDERED: ATORVASTATIN 10 MG TABLET PO SCH (13:30)
[2024-03-08] MEDS ORDERED: PANTOPRAZOLE 40 MG TABLET.DR PO SCH (13:30)
[2024-03-08] MEDS ORDERED: TRAMADOL HCL 50 MG TABLET PO PRN (13:30)
[2024-03-08] MEDS ORDERED: hydrALAZINE HCL 50 MG TABLET PO PRN (13:30)
[2024-03-08] MEDS: TAMSULOSIN 0.4 MG CAP.SR.24H PO SCH (13:55)
[2024-03-08] MEDS: LOSARTAN/HCTZ 50-12.5MG/ 1 EA TABLET PO SCH (13:55)
[2024-03-08 16:42] VITALS: BP 112/76; TEMP 97.7; O2SAT 99
[2024-03-08 20:00] VITALS: BP 121/82; TEMP 97.7; O2SAT 99
[2024-03-08 20:20] VITALS: BP 121/82; TEMP 97.7; O2SAT 99
[2024-03-08] MEDS: TRAZODONE 50 MG TABLET PO SCH (21:23)
[2024-03-09 06:33] LABS: BASOPHILS # (AUTO) 0.1 K/uL (0.0-0.2); EOSINOPHILS # (AUTO) 0.1 K/uL (0.0-0.7); HEMATOCRIT 41 % (39-51); HEMOGLOBIN 12.8 g/dL (13.5-17.5); LYMPHOCYTES # (AUTO) 2.5 K/uL (0.8-4.8); LYMPHOCYTES % (AUTO) 38.8 % (20.0-44.0); MEAN CORPUSCULAR HEMOGLOBIN 22 PG (26.0-33.0); MEAN CORPUSCULAR HGB CONC 31 g/dl (31.0-36.0); MEAN CORPUSCULAR VOLUME 70 fL (80-96); MONOCYTES # (AUTO) 0.4 K/uL (0.1-1.30); MONOCYTES % (AUTO) 6.9 % (2.0-12.0); NEUTROPHILS # (AUTO) 3.3 K/uL (1.8-8.9); NEUTROPHILS % (AUTO) 51.3 % (43.0-81.0); PLATELET COUNT (AUTO) 206 K/uL (150-450); RED BLOOD CELL COUNT(AUTO) 5.89 MIL/uL (4.5-6.0); RED CELL DISTRIBUTION WIDTH 16.2 % (11.5-15.0); WHITE BLOOD COUNT (AUTO) 6.4 K/uL (4.3-11.0)
[2024-03-09 06:38] LABS: CALCIUM, SERUM 9.3 mg/dL (8.5-10.1); CREATININE 1.6 mg/dL (0.6-1.3)
[2024-03-09 06:50] LABS: MAGNESIUM 1.9 mg/dL (1.8-2.4); PHOSPHORUS 3.2 mg/dL (2.5-4.9)
[2024-03-09 07:09] LABS: PTH, INTACT 28 pg/mL (15-65)
[2024-03-09 08:00] VITALS: BP 127/67; TEMP 99; O2SAT 97
[2024-03-09] MEDS: glipiZIDE XL 2.5 MG TAB.OSM.24 PO SCH (09:01)
[2024-03-09] MEDS: POTASSIUM CHLORIDE 20 MEQ TAB.PRT.SR PO SCH (11:10)
[2024-03-09] MEDS ORDERED: POTASSIUM CHLORIDE 20 MEQ TAB.PRT.SR PO SCH (12:30)
[2024-03-09 16:00] VITALS: BP 109/89; TEMP 98.2; O2SAT 97
[2024-03-09 20:00] VITALS: BP 130/79; TEMP 98.4; O2SAT 100
[2024-03-10 05:44] LABS: BASOPHILS % (AUTO) 0.7 % (0.0-2.0); EOSINOPHILS # (AUTO) 0.2 K/uL (0.0-0.7); HEMATOCRIT 42 % (39-51); HEMOGLOBIN 13.1 g/dL (13.5-17.5); LYMPHOCYTES # (AUTO) 2.3 K/uL (0.8-4.8); LYMPHOCYTES % (AUTO) 35.4 % (20.0-44.0); MEAN CORPUSCULAR HEMOGLOBIN 21 PG (26.0-33.0); MEAN CORPUSCULAR HGB CONC 31 g/dl (31.0-36.0); MEAN CORPUSCULAR VOLUME 69 fL (80-96); MONOCYTES # (AUTO) 0.5 K/uL (0.1-1.30); NEUTROPHILS # (AUTO) 3.5 K/uL (1.8-8.9); NEUTROPHILS % (AUTO) 53.9 % (43.0-81.0); PLATELET COUNT (AUTO) 201 K/uL (150-450); RED BLOOD CELL COUNT(AUTO) 6.11 MIL/uL (4.5-6.0); RED CELL DISTRIBUTION WIDTH 15.7 % (11.5-15.0); WHITE BLOOD COUNT (AUTO) 6.6 K/uL (4.3-11.0)
[2024-03-10 06:04] LABS: CREATININE 1.5 mg/dL (0.6-1.3); MAGNESIUM 1.7 mg/dL (1.8-2.4); PHOSPHORUS 3.2 mg/dL (2.5-4.9); POTASSIUM 3.7 mmol/L (3.5-5.1)
[2024-03-10 07:30] VITALS: BP 114/67; TEMP 98.2; O2SAT 100
[2024-03-10] MEDS: MAGNESIUM OXIDE 400 MG TABLET PO ONE (10:04)
[2024-03-10 16:00] VITALS: BP 118/71; TEMP 97.3; O2SAT 99
[2024-03-10 20:00] VITALS: BP 117/86; TEMP 98.1; O2SAT 53
[2024-03-11 00:31] VITALS: BP 107/86; TEMP 98.1; O2SAT 53
[2024-03-11 06:26] LABS: BASOPHILS # (AUTO) 0.1 K/uL (0.0-0.2); BASOPHILS % (AUTO) 0.8 % (0.0-2.0); EOSINOPHILS # (AUTO) 0.3 K/uL (0.0-0.7); EOSINOPHILS % (AUTO) 3.9 % (0.0-6.0); HEMATOCRIT 41 % (39-51); HEMOGLOBIN 12.9 g/dL (13.5-17.5); LYMPHOCYTES # (AUTO) 2.2 K/uL (0.8-4.8); LYMPHOCYTES % (AUTO) 30.7 % (20.0-44.0); MEAN CORPUSCULAR HEMOGLOBIN 22 PG (26.0-33.0); MEAN CORPUSCULAR HGB CONC 32 g/dl (31.0-36.0); MEAN CORPUSCULAR VOLUME 69 fL (80-96); MONOCYTES # (AUTO) 0.6 K/uL (0.1-1.30); MONOCYTES % (AUTO) 8.5 % (2.0-12.0); NEUTROPHILS # (AUTO) 3.9 K/uL (1.8-8.9); NEUTROPHILS % (AUTO) 56.1 % (43.0-81.0); PLATELET COUNT (AUTO) 192 K/uL (150-450); RED BLOOD CELL COUNT(AUTO) 5.92 MIL/uL (4.5-6.0); RED CELL DISTRIBUTION WIDTH 15.7 % (11.5-15.0)
[2024-03-11 06:27] LABS: CALCIUM, SERUM 9.1 mg/dL (8.5-10.1); CREATININE 1.5 mg/dL (0.6-1.3); PHOSPHORUS 3.3 mg/dL (2.5-4.9); POTASSIUM 3.6 mmol/L (3.5-5.1)
[2024-03-11 08:00] VITALS: BP 130/93; TEMP 98.4; O2SAT 100
[2024-03-11 10:11] LABS: *SPE A/G RATIO 1.6 (0.7-1.7); *SPE ALBUMIN 3.6 g/dL (2.9-4.4); *SPE ALPHA-1-GLOBULIN 0.2 g/dL (0.0-0.4); *SPE ALPHA-2-GLOBULIN 0.8 g/dL (0.4-1.0); *SPE BETA GLOBULIN 0.6 g/dL (0.7-1.3); *SPE GLOBULIN, TOTAL 2.2 g/dL (2.2-3.9); *SPE M-SPIKE Not Observed g/dL (Not Observed); *SPE PROTEIN TOTAL 5.8 g/dL (6.0-8.5); *SPEGAMMA GLOBULIN 0.7 g/dL (0.4-1.8)
[2024-03-11] MEDS ORDERED: CIPR-262 PO (10:21)
[2024-03-11 11:15] VITALS: BP 130/93
== END 2024-03-11 12:40 | disposition home or self-care (01) | DRG 871 ==
LOC: ER 17:40 → TELE 21:58 → MED 03-07 11:38
PROVIDERS: ATTEND Nurse Practitioner Acute Care
DX: A41.9 Sepsis, unspecified organism (principal); I21.A1 Myocardial infarction type 2; N17.9 Acute kidney failure, unspecified; E87.29 Other acidosis; N39.0 Urinary tract infection, site not specified; K80.20 Calculus of gallbladder without cholecystitis without obstruction; N18.9 Chronic kidney disease, unspecified; E11.22 Type 2 diabetes mellitus with diabetic chronic kidney disease; N18.32 Chronic kidney disease, stage 3b; I12.9 Hypertensive chronic kidney disease with stage 1 through stage 4 chronic kidney disease, or unspecified chronic kidney disease; Z79.84 Long term (current) use of oral hypoglycemic drugs; Z79.899 Other long term (current) drug therapy; E78.5 Hyperlipidemia, unspecified; B96.89 Other specified bacterial agents as the cause of diseases classified elsewhere; M89.8X9 Other specified disorders of bone, unspecified site; Z87.828 Personal history of other (healed) physical injury and trauma; V89.2XXS Person injured in unspecified motor-vehicle accident, traffic, sequela; E86.9 Volume depletion, unspecified; E86.0 Dehydration; E87.6 Hypokalemia; Z79.4 Long term (current) use of insulin; Z87.440 Personal history of urinary (tract) infections
CPT/HCPCS: 36415; 71045-TC; 76770-TC; 80048-TC; 80053-TC; 80061-TC; 80076-TC; 81001; 82550-TC; 82553; 82962-TC; 83605-TC; 83690-TC; 83735-TC; 83970; 84100-TC; 84155; 84165; 84439-TC; 84443-TC; 84484-TC; 85025-TC; 87040-TC; 87086-TC; 93307-TC; A4223; G0378; J0696; J1644; J1815; J2270; J2405; J2470; J3490; J7030; J7050; J7060